=== PATIENT | male | born 1975 | race Caucasian/White ===

== ENCOUNTER 2023-08-30 07:00 | Day surgery (SDC) | payer OTHER ==
[~2023-08-30] VITALS: Ht 177.8 cm; Wt 92.7 kg
[~2023-08-30 07:00] MED LIST: PHENTERMINE HCL30 MG PO; SIMVASTATIN20 MG PO
[2023-08-30 07:19] VITALS: BP 124/82
--- NOTE | 2023-08-30 07:19 | NUR ---
ROUNDS. PT EXHIBITED STRONG RELATIONAL AND MORRIS RESOURCES; CONSENTED TO PRAYER. PROVIDED HOSPITALITY; NORMALIZED EXPERIENCE; PROVIDED PRAYER. PT EXPRESSED GRATITUDE.
--- NOTE | 2023-08-30 09:21 | NUR ---
08/30/23 0921 Leif Damcio PATIENT ARRIVED TO PACU FROM ENDO ROOM. REPORT RECIEVED FROM PRASHANT RN AND VINCENT RN. PATIENT WAS NOT AWAKE AT THIS TIME BUT WAS AROUSABLE WITH LIGHT PHYSICAL STIMULI. PATIENT WOULD AWAKE AND RESPON TO VERBAL STIMULI BY 920. PATIENT DENIES PAIN OR DISCOMFORT AT THIS TIME.
[2023-08-30 09:49] VITALS: BP 107/74
--- NOTE | 2023-08-31 10:03 | OR ---
[facility] [address] [place], [place] [address] Signed DATE OF OPERATION: 08/30/2023 SURGEON: Latha Maldonado MD PREOPERATIVE DIAGNOSIS: Positive Cologuard test June 2023. POSTOPERATIVE DIAGNOSIS: Multiple polyps of rectum (greater than 4). PROCEDURE: Total colonoscopy to cecum with cold snare polypectomy x1 and cold morcellation polypectomy x3+. ANESTHESIA: Intravenous sedation; fentanyl 100 mcg, Versed 7 mg. INDICATION: This 48-year-old white man is a patient of Dr. Theresa Guo. He underwent Cologuard testing in June, which was positive. He has no symptoms of bleeding, diarrhea, or constipation and no family history of colon cancer. He understands risk of colonoscopy, which include, but are not limited to bleeding, infection, and perforation and wished to proceed. FINDINGS: The prep was good. Complete colonoscopy was undertaken of the cecum without question. He had one relatively larger polyp greater than a cm in size in the rectosigmoid, excised with cold snare technique with application of a hemoclip as well as several small polyps at least 3 and possibly 4, all in the rectum, all excised entirely. DESCRIPTION OF PROCEDURE: The patient was brought to the endoscopy suite and placed in lateral decubitus position, given intravenous sedation to the point of slurred speech and nystagmus. Digital rectal examination was normal. An Olympus video colonoscope was passed in the rectum and manipulated throughout the colon ultimately intubating the cecum itself. Careful withdrawal of the scope with irrigation and so forth showed no sign of abnormality until the rectosigmoid where a sessile polyp was noted. This was excised with cold snare technique. Several snares were required to fully excise the polyp, though it was not any larger than 1 cm or so. Electronically Signed By: LATHA MALDONADO MD 08/31/23 1003 PATIENT NAME: LORI GIBSON OPERATIVE REPORT DATE OF : 73 REPORT #: [id number] PHYSICIAN: LATHA MALDONADO MD PCP: THERESA GUO MD REPORT IS CONFIDENTIAL AND NOT TO BE RELEASED WITHOUT AUTHORIZATION [facility] [address] [place], [place] [address] Signed Due to persistent dripping of blood, a hemoclip was applied. Additionally, there were some aphthous type abnormalities of the rectum and a few subtle small polyps. These were excised with cold morcellation technique. Three in total were excised overall. The scope was placed in a retroflexed position showing no sign of other anorectal abnormality. The scope was removed and the patient was taken to the recovery room in good condition. CONCLUDING DIAGNOSIS: Positive Cologuard test concordant to polyps x4 of the rectum. PLAN: Recommend repeat colonoscopy in 1 to 2 years based on findings currently. He will return to the ongoing care of Dr. Guo otherwise. MD NEFTALI Martinez/WESLEY /[id number] cc: Theresa Guo MD Copies: THERESA GUO MD ~ Electronically Signed By: LATHA MALDONADO MD 08/31/23 1003 PATIENT NAME: LORI GIBSON OPERATIVE REPORT DATE OF : 73 REPORT #: [id number] PHYSICIAN: LATHA MALDONADO MD PCP: THERESA GUO MD REPORT IS CONFIDENTIAL AND NOT TO BE RELEASED WITHOUT AUTHORIZATION
--- NOTE | 2023-09-04 13:43 | PATH ---
[facility] [address] [place], [place] [address] Signed SPECIMEN(S): A RECTAL POLYPS SPECIMEN(S): B RECTUM BIOPSY SPECIMEN(S): C RECTAL POLYP SPECIMEN(S): D RECTAL POLYP SPECIMEN SOURCE: A. RECTAL POLYPS B. RECTUM BIOPSY C. RECTAL POLYP D. RECTAL POLYP CLINICAL HISTORY: Pre-op: Positive Cologuard test 07/11. Post-op: Multiple rectal polyps. FINAL PATHOLOGIC DIAGNOSIS: A. Rectal polyps: - Hyperplastic polyps (multiple fragments). B. Rectum biopsy: - Benign colonic mucosa with focal reactive features, negative for pathologic inflammation. C. Rectal polyp: - Tubular adenoma (five fragments). D. Rectal polyp: - Hyperplastic polyp (two fragments). JVR:param MICROSCOPIC EXAMINATION: Histologic sections of all submitted blocks are examined by light microscopy. These findings, together with the gross examination, support the pathologic diagnosis. GROSS DESCRIPTION: A. The specimen, labeled and designated "Sixto Rios," and designated on the requisition "colon, rectum polypectomy x2," is received in formalin and consists of six duong soft tissue fragments measuring 0.3 to 0.5 cm, all specimens are submitted entirely in (A1). B. The specimen, labeled and designated "Sixto Rios," and designated on the requisition "colon, rectum biopsy," is received in formalin and consists of two duong soft tissue fragments measuring 0.7 cm, the specimen is submitted entirely in (B1). C. The specimen, labeled and designated "Sixto Rios," and designated on the PATIENT NAME: LORI RIOS PATHOLOGY DATE OF : 73 REPORT #: [id number] PHYSICIAN: KELLYFieldglass DONN PCP: THERESA GARCIA MD REPORT IS CONFIDENTIAL AND NOT TO BE RELEASED WITHOUT AUTHORIZATION [facility] [address] [place], [place] [address] Signed requisition "colon, rectum large polypectomy," is received in formalin and consists of five duong-brown soft polypoid tissue fragments measuring 0.3 to 1.0 cm in length and up to 0.8 cm in greatest diameter, the largest polypoid tissue resection margin is inked green and serially sectioned, all specimens are submitted entirely in (C1). D. The specimen, labeled and designated "Sixto Rios," and designated on the requisition "colon, rectum polypectomy," is received in formalin and consists of two duong soft tissue fragments measuring 0.2 to 0.4 cm, both specimens are submitted entirely in (D1). MMA (under the direct supervision of a pathologist) The Gross Description was prepared using a voice recognition system. The report was reviewed for accuracy; however, sound-alike word errors, addition and/or deletions may occur. If there is any question about this report, please contact Client Services. PERFORMING LABORATORY: Technical component was performed by [email or web address], [address] [place] [id number] (CLIA# [id number]). Professional interpretation was performed by [facility], [address] [place] [id number] (CLIA#: [id number]). Diagnostician: Chato Suarez MD Pathologist Electronically Signed 09/04/2023 Copies: ~ PATIENT NAME: LORI RIOS PATHOLOGY DATE OF : 73 REPORT #: [id number] PHYSICIAN: [facility] PCP: THERESA GARCIA MD REPORT IS CONFIDENTIAL AND NOT TO BE RELEASED WITHOUT AUTHORIZATION
== END 2023-08-30 10:00 | disposition home or self-care (01) ==
LOC: DS 07:00 → OPS 07:00 → DS 08:30 → OPS 10:00
PROVIDERS: ATTEND Surgery
PROC: 0DBN8ZZ Excision of Sigmoid Colon, Via Natural or Artificial Opening Endoscopic (ICD-10-PCS; 2023-08-30)
PROC: 0DBP8ZZ Excision of Rectum, Via Natural or Artificial Opening Endoscopic (ICD-10-PCS; principal; 2023-08-30 08:30)
DX: Z12.11 Encounter for screening for malignant neoplasm of colon (principal); D12.8 Benign neoplasm of rectum; K62.1 Rectal polyp; E78.5 Hyperlipidemia, unspecified; R63.8 Other symptoms and signs concerning food and fluid intake
CPT/HCPCS: 99153; G0500; J2250; J3010; J7121